=== PATIENT | male | born 1970 | race Two or more races ===

== ENCOUNTER → 2018-11-01 | Outpatient (CLI) | payer OTHER ==
[~2018-11-01] MED LIST: OMNIPAQUE 350 MG/ML, 150 ML BOTTLE ONE
== END | disposition home or self-care (01) ==
LOC: RAD 06:36
PROVIDERS: ATTEND Family Medicine Adult Medicine
DX: I70.90 Unspecified atherosclerosis (principal); I77.1 Stricture of artery; K42.9 Umbilical hernia without obstruction or gangrene; Z95.820 Peripheral vascular angioplasty status with implants and grafts; Z87.828 Personal history of other (healed) physical injury and trauma; Z88.0 Allergy status to penicillin
CPT/HCPCS: 73706; Q9967

== ENCOUNTER 2020-08-26 17:44 | Emergency (ER) | payer OTHER ==
[~2020-08-26] VITALS: Ht 165.1 cm; Wt 112.4 kg
[~2020-08-26 17:44] MED LIST changes: +OMNIPAQUE 350 MG/ML, 100ML BOTTLE ONE; -OMNIPAQUE 350 MG/ML, 150 ML BOTTLE ONE
--- NOTE | 2020-08-26 18:19 | NUR ---
CC OF LEFT LEG SWELLING AND PAIN X 3 WEEKS WITH INCREASING SOB. 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 PT IN CUSTODY, HAS TWO GUARDS AT BEDSIDE.
[2020-08-26 18:38] LABS: BASOPHILS % (AUTO) 2 % (0-1); EOSINOPHILS % (AUTO) 2 % (1-7); LYMPHOCYTES % (AUTO) 28 % (22-44); MEAN CORPUSCULAR HGB CONC 32.8 g/dL (33.2-36.2); MEAN PLATELET VOLUME 6.8 fL (7.4-10.4); MONOCYTES % (AUTO) 13 % (2-9); NEUTROPHILS % (AUTO) 56 % (42-75); PLATELET COUNT 310 x10^3/uL (130-400); RED BLOOD COUNT 4.11 x10^6/uL (4.38-5.82); RED CELL DISTRIBUTION WIDTH 14.5 % (9.4-14.8)
[2020-08-26 18:41] LABS: MD NO
[2020-08-26 18:45] LABS: ALBUMIN 3.1 g/dL (3.4-5.0); ANION GAP 5 mmol/L (5-15); CALCIUM 8.5 mg/dL (8.5-10.1); CHLORIDE 108 mmol/L (98-107); CREATININE 1.22 mg/dL (0.7-1.3)
[2020-08-26 19:27] LABS: TROPONIN I < 0.015 ng/mL (0.000-0.045)
--- NOTE | 2020-08-26 19:28 | NUR ---
PT RESTING IN GURNEY, PENDING GOING TO IMAGING FOR CTA. X2 GUARDS AT BEDSIDE
[2020-08-26] MEDS ORDERED: SODIUM CHLORIDE FLUSH 10ML SYR IVF ONE (19:30)
--- NOTE | 2020-08-26 19:50 | NUR ---
PT TO IMAGING
[2020-08-26] MEDS ORDERED: HEPARIN 5,000 UNITS/ML, 1ML IV PRN (20:00)
[2020-08-26] MEDS ORDERED: HEPARIN 5,000 UNITS/ML, 1ML IV ONE (20:00)
[2020-08-26] MEDS ORDERED: HEPARIN 25,000 UNITS/250ML PMX 250 ML IV PRN (20:00)
[2020-08-26] MEDS ORDERED: HEPARIN 25,000 UNITS/250ML PMX 250 ML ONE (20:10)
[2020-08-26] MEDS ORDERED: HEPARIN 5,000 UNITS/ML, 1ML ONE (20:10)
--- NOTE | 2020-08-26 20:23 | NUR ---
PER DR MARTINEZ HOLD ON STARTING HEPARIN GTT AT THIS TIME, PT MAY BE A CANIDATE FOR ELIQUIS AND DC BACK TO LONGTERM. HEPARIN GTT SCANNED IN WHILE MD WALKING INTO ROOM, HEPARIN LINE NOT CONNECTED TO PTS PIV, MED CHARTING UNDONE AND VERIFIED WITH SAYNA MATA.
[2020-08-26] MEDS ORDERED: APIXABAN 5 MG TABLET PO ONE (21:00)
[2020-08-26] MEDS ORDERED: APIXABAN 5 MG TABLET ONE (21:08)
--- NOTE | 2020-08-26 21:28 | NUR ---
ELIGUIS GIVEN BEFORE DISCHARGE, HEPARIN DC'D. PT AND GUARDS VERBALIZE UNDERSTANDING OF MEDICATIONS AND POC. PT TO BE DC'D.
[2020-08-26 21:29] VITALS: BP 135/81
== END 2020-08-26 21:51 | disposition home or self-care (01) ==
LOC: ED 18:11
DX: I82.412 Acute embolism and thrombosis of left femoral vein (principal); I82.432 Acute embolism and thrombosis of left popliteal vein; I26.99 Other pulmonary embolism without acute cor pulmonale; M79.662 Pain in left lower leg; M79.89 Other specified soft tissue disorders; R07.89 Other chest pain; R00.9 Unspecified abnormalities of heart beat; R05 Cough; I10 Essential (primary) hypertension; Z87.891 Personal history of nicotine dependence
CPT/HCPCS: 36415; 71045; 71275; 80048; 82040; 83880; 84484; 85025; 85379; 85520; 93005; 93971; 99285; Q9967; J1644

== ENCOUNTER → 2020-09-23 | Outpatient (CLI) | payer OTHER | END | disposition home or self-care (01) | LOC: CVU 07:31 | PROVIDERS: ATTEND Physician Assistant Medical | DX: I77.1 Stricture of artery (principal); R10.31 Right lower quadrant pain; I10 Essential (primary) hypertension | CPT/HCPCS: 93922; 93926 ==